=== PATIENT | female | born 1960 | race African-American/Black ===

== ENCOUNTER 2016-11-22 16:23 | Emergency (ER) | payer MEDICARE, MEDICAID ==
[~2016-11-22] VITALS: Ht 154.9 cm; Wt 51.0 kg
[~2016-11-22 16:23] MED LIST: AMLO5TAB4 PO; Allopurinol PO; Aspirin PO; Colchicine PO; DICL75TA5 PO; DOXE10CA2 PO; Furosemide PO; KDUR10 PO; LEVO500T15 PO; LISI-651 PO; Metoprolol Tartrate PO
[2016-11-22] MEDS ORDERED: IBUPROFEN 600MG TABLET PO STA (18:18)
[2016-11-22 19:19] LABS: BASOPHILS % 0.4 % (0.0-2.0); EOSINOPHILS % 1.3 % (0.0-5.0); HEMATOCRIT. 32.5 % (36.0-48.0); HEMOGLOBIN. 10.5 g/dL (12.0-16.0); MEAN CORPUSCULAR HEMOGLOBIN 30.6 pg (28.0-32.0); MEAN CORPUSCULAR HGB CONC 32.4 g/dL (31.0-37.0); MEAN CORPUSCULAR VOLUME 94.6 fL (81.0-99.0); MEAN PLATELET VOLUME 7.7 fl (7.4-10.4); MONOCYTES % 11.9 % (2.0-8.0); NEUTROPHILS % 52.4 % (40.0-76.0); PLATELET 406 x1000/uL (130-400); RED BLOOD CELL COUNT 3.44 mill/uL (4.2-5.4); RED CELL DISTRIBUTION WIDTH 15.7 % (11.6-14.6); WHITE BLOOD COUNT 4.2 x1000/uL (4.5-11.0)
[2016-11-22 19:25] LABS: ALBUMIN 3.1 g/dL (3.4-5.0); ANION GAP 13; CALCIUM 10.1 mg/dL (8.5-10.1); CARBON DIOXIDE 25 mEq/L (21-32); CHLORIDE 112 mEq/L (98-107); INDEX HEMOLYSI 1 (1-3); INDEX ICTERIC 1 (1-4); INDEX LIPEMIC 1 (1-3)
[2016-11-22 19:27] LABS: UREA NITROGEN BLOOD 50 mg/dL (7-21)
[2016-11-22 19:31] LABS: ALANINE AMINOTRANSFERASE 21 IU/L (13-61); eGFR 40 mL/min (>60)
[2016-11-22 21:52] VITALS: BP 100/70
== END 2016-11-22 22:18 | disposition home or self-care (01) ==
LOC: ER 18:37
DX: R53.1 Weakness (principal); R42 Dizziness and giddiness; N28.9 Disorder of kidney and ureter, unspecified; I10 Essential (primary) hypertension; I50.9 Heart failure, unspecified; D64.9 Anemia, unspecified
CPT/HCPCS: 36415; 70450; 80053; 85025; 93005; 99285